=== PATIENT | female | born 1985 | race American Indian/Alaskan Native ===

== ENCOUNTER 2018-05-12 10:56 | Emergency (ER) | payer BC ==
[~2018-05-12] VITALS: Ht 165.1 cm; Wt 63.5 kg
[~2018-05-12 10:56] MED LIST: BIRTH CONTROL PILLS PO; POLY17UD PO
[2018-05-12] MEDS ORDERED: ALBU90OI6 INH (11:04)
[2018-05-12] MEDS ORDERED: ATEN25 (11:04)
[2018-05-12] MEDS ORDERED: BUDE6HFA INH (11:04)
== END 2018-05-12 11:21 | disposition home or self-care (01) ==
LOC: ER 10:56
DX: I48.0 Paroxysmal atrial fibrillation (principal); Z88.0 Allergy status to penicillin; Z79.899 Other long term (current) drug therapy
CPT/HCPCS: 93005; 93010

== ENCOUNTER 2018-09-21 07:25 | Emergency (ER) | payer BC ==
[~2018-09-21] VITALS: Ht 167.6 cm; Wt 61.2 kg
[~2018-09-21 07:25] MED LIST changes: +ALBU90OI6 INH; +ATEN25; +BUDE6HFA INH
[2018-09-21] MEDS ORDERED: BIRTH CONTROL (07:31)
== END 2018-09-21 09:01 | disposition home or self-care (01) ==
LOC: ER 07:25
DX: R51 Headache (principal); Z88.0 Allergy status to penicillin
CPT/HCPCS: 36415; 70450; 96361; 96374; 96375; 99284-25; J1200; J1885; J7030

== ENCOUNTER 2019-04-23 19:05 | Emergency (ER) | payer BC ==
[~2019-04-23] VITALS: Ht 167.6 cm; Wt 68.0 kg
[~2019-04-23 19:05] MED LIST changes: +BIRTH CONTROL
[2019-04-23] MEDS ORDERED: SUMA25 PO (19:10)
== END 2019-04-23 21:57 | disposition home or self-care (01) ==
LOC: ER 19:05
DX: G43.909 Migraine, unspecified, not intractable, without status migrainosus (principal); I48.91 Unspecified atrial fibrillation; J45.909 Unspecified asthma, uncomplicated; Z88.0 Allergy status to penicillin
CPT/HCPCS: 36415; 96361; 96374; 96375; 99283-25; J0780; J1200; J1885; J7030

== ENCOUNTER 2019-11-25 13:10 | Emergency (ER) | payer BC ==
[~2019-11-25] VITALS: Ht 165.1 cm; Wt 63.5 kg
[~2019-11-25 13:10] MED LIST changes: +SUMA25 PO
[2019-11-25 13:49] LABS: BASOPHILS ABSOLUTE AUTO 0.04 K/mm3 (0.00-0.23); BASOPHILS PERCENT AUTO 1 % (0-2); EOSINOPHILS ABSOLUTE AUTO 0.11 K/mm3 (0.00-0.68); EOSINOPHILS PERCENT AUTO 2 % (0-6); Hematocrit 41.6 % (33.0-51.0); Hemoglobin 14.1 g/dL (11.5-16.0); IMMATURE GRAN ABSOLUTE AUTO 0.01 K/mm3 (0.00-0.10); IMMATURE GRAN PERCENT AUTO 0 % (0-1); LYMPHOCYTES ABSOLUTE AUTO 1.75 K/mm3 (0.84-5.20); LYMPHOCYTES PERCENT AUTO 32 % (21-46); MONOCYTES ABSOLUTE AUTO 0.58 K/mm3 (0.16-1.47); MONOCYTES PERCENT AUTO 11 % (4-13); Mean Corpuscular HGB 31.9 pg (26.0-34.0); Mean Corpuscular HGB Conc 33.9 g/dL (31.5-36.5); Mean Corpuscular Volume 94 fL (80-100); Mean Platelet Volume 8.7 fL (9.1-12.4); NEUTROPHILS ABSOLUTE AUTO 2.96 K/mm3 (1.96-9.15); NEUTROPHILS PERCENT AUTO 54 % (41-73); Platelet Count 281 K/mm3 (150-400); RDW Coefficient Variation 11.6 % (11.7-14.2); RDW Standard Deviation 39.8 fL (35.1-46.3); Red Blood Cell Count 4.42 M/mm3 (3.80-5.20); White Blood Cell Count 5.45 K/mm3 (4.00-11.30)
[2019-11-25 14:05] LABS: Alanine Aminotransfer (ALT/SGP 17 U/L (12-78); Albumin, Blood 4.3 g/dL (3.4-5.0); Albumin/Globulin Ratio 1.1 (0.8-1.8); Alk Phos 51 U/L (50-136); Anion Gap 7 mmol/L (6-16); Aspartate Aminotrans (AST/SGOT 12 U/L (12-37); Bilirubin, Total 0.5 mg/dL (0.1-1.0); Blood Urea Nitrogen 9 mg/dL (8-24); CO2, Blood 24 mmol/L (21-32); Chloride, Blood 108 mmol/L (98-108); Creatinine, Blood 0.69 mg/dL (0.40-1.00); Glomerular Filtration Rate >60 (60-); Glucose, Blood 88 mg/dL (70-99); Potassium, Blood 3.9 mmol/L (3.5-5.5); Sodium, Blood 139 mmol/L (136-145); Total Protein, Blood 8.3 g/dL (6.4-8.2); Troponin I <0.015 ng/mL (0.000-0.040)
[2019-11-25] MEDS ORDERED: OMEP20ER PO (15:47)
[2019-11-25] MEDS ORDERED: IMITREX25 MG PO (15:48)
[2019-11-25] MEDS ORDERED: ASPI325 PO (15:48)
== END 2019-11-25 16:21 | disposition home or self-care (01) ==
LOC: ER 13:10
PROVIDERS: Physician Assistant
DX: K21.9 Gastro-esophageal reflux disease without esophagitis (principal); F43.9 Reaction to severe stress, unspecified; I48.91 Unspecified atrial fibrillation; J45.909 Unspecified asthma, uncomplicated
CPT/HCPCS: 36415; 71046; 80053; 84484; 85025; 85379; 93005; 93010; 99284-25

== ENCOUNTER 2020-10-18 06:49 | Day surgery (SDC) | payer BC ==
[~2020-10-18] VITALS: Ht 165.1 cm; Wt 63.4 kg
[~2020-10-18 06:49] MED LIST changes: +ASPI325 PO; +IMITREX25 MG PO; +OMEP20ER PO
[2020-10-18] MEDS ORDERED: ACET325 PO (07:14)
[2020-10-18] MEDS ORDERED: ATEN25 PO (07:14)
== END 2020-10-18 08:45 | disposition home or self-care (01) ==
LOC: ORSCSDS 06:49
PROVIDERS: Surgery
PROC: 0DB68ZX Excision of Stomach, Via Natural or Artificial Opening Endoscopic, Diagnostic (ICD-10-PCS; principal; 2020-10-18 08:00)
DX: R10.13 Epigastric pain (principal); K21.9 Gastro-esophageal reflux disease without esophagitis; F41.9 Anxiety disorder, unspecified; J45.909 Unspecified asthma, uncomplicated; Z79.899 Other long term (current) drug therapy
CPT/HCPCS: 88305; 88342; J2704; J7120

== ENCOUNTER → 2024-05-21 | Outpatient (CLI) | payer OTHER ==
[~2024-05-21] MED LIST changes: +ACET325 PO; +ATEN25 PO; +CIPR500 PO; +METR500 PO; +[UNRECOGNIZED DRUG - OTHER] PO
[2024-05-23 07:16] LABS: APTIMA MEDIA TYPE Urine; C. TRACHOMATIS BY TMA Negative (Negative); N. GONORRHOEAE BY TMA Negative (Negative); SPECIMEN SOURCE Urine
== END ==
LOC: LAB 17:12 → LAB SHORT 17:12
PROVIDERS: Obstetrics & Gynecology
DX: Z34.01 Encounter for supervision of normal first pregnancy, first trimester (principal)
CPT/HCPCS: 87491; 87591

== ENCOUNTER 2024-11-24 07:05 | Inpatient (IN) | payer OTHER ==
[2024-11-24] VITALS (26 sets, daily range): BP systolic 107–149; BP diastolic 64–88
[~2024-11-24] VITALS: Ht 167.6 cm; Wt 83.5 kg
[2024-11-24] MEDS ORDERED: Carboprost Tromethamine 250 MCG/ML 1ML Amp IM PRN (07:55)
[2024-11-24] MEDS ORDERED: OXYTOCIN/RINGER'S LACTATE 500 ML IV PRN (07:55)
[2024-11-24] MEDS ORDERED: FentaNYL 2mcg/ml-Bup 0.1% Epd 250 ML EPI PRN (07:55)
[2024-11-24] MEDS ORDERED: Methylergonovine Maleate 0.2MG / ML 1ML Amp IM PRN (07:55)
[2024-11-24] MEDS ORDERED: FentaNYL Citrate 50 MCG/ML 2 ML Injection IV PRN (07:55)
[2024-11-24] MEDS ORDERED: Tranexamic Acid 100 ML IV SCH (07:55)
[2024-11-24] MEDS ORDERED: ePHEDrine Sulfate 50 MG/ML 1ML Injection XX PRN (07:55)
[2024-11-24] MEDS ORDERED: Oxytocin 10 Unit / ML Vial IM PRN (07:55)
[2024-11-24] MEDS ORDERED: OXYTOCIN/RINGER'S LACTATE 500 ML IV SCH (07:55)
[2024-11-24] MEDS ORDERED: Ondansetron HCl 2 MG / ML 2ML Vial IV PRN (08:00)
[2024-11-24 08:11] LABS: BASOPHILS ABSOLUTE AUTO 0.02 K/mm3 (0.00-0.23); BASOPHILS PERCENT AUTO 0 % (0-2); EOSINOPHILS ABSOLUTE AUTO 0.13 K/mm3 (0.00-0.68); EOSINOPHILS PERCENT AUTO 2 % (0-6); Hematocrit 37.4 % (33.0-51.0); Hemoglobin 12.9 g/dL (11.5-16.0); IMMATURE GRAN ABSOLUTE AUTO 0.04 K/mm3 (0.00-0.10); IMMATURE GRAN PERCENT AUTO 0 % (0-1); LYMPHOCYTES ABSOLUTE AUTO 2.01 K/mm3 (0.84-5.20); LYMPHOCYTES PERCENT AUTO 23 % (21-46); MONOCYTES ABSOLUTE AUTO 0.72 K/mm3 (0.16-1.47); MONOCYTES PERCENT AUTO 8 % (4-13); Mean Corpuscular HGB Conc 34.5 g/dL (31.5-36.5); Mean Corpuscular Volume 94 fL (80-100); NEUTROPHILS ABSOLUTE AUTO 5.97 K/mm3 (1.96-9.15); NEUTROPHILS PERCENT AUTO 67 % (41-73); NRBC ABSOLUTE 0.00 K/mm3 (0.00-0.02); NRBC Auto 0.0 /100 WBC (0.0-0.2); Platelet Count 242 K/mm3 (150-400); RDW Coefficient Variation 13.8 % (11.7-14.2); RDW Standard Deviation 47.1 fL (35.1-46.3)
[2024-11-24] MEDS ORDERED: PRENATAL TABLE1 EAC2 PO (08:29)
[2024-11-25] VITALS (13 sets, daily range): BP systolic 100–129; BP diastolic 57–71
[2024-11-25] MEDS ORDERED: Witch Hazel/Glycerin PADS TOP PRN (02:50)
[2024-11-25] MEDS ORDERED: Methylergonovine Maleate 0.2MG / ML 1ML Amp IM PRN (02:50)
[2024-11-25] MEDS ORDERED: OXYTOCIN/RINGER'S LACTATE 500 ML IV SCH (02:50)
[2024-11-25] MEDS ORDERED: Benzocaine Topical Anesthetic Spray 60GM TOP PRN (02:50)
[2024-11-25] MEDS ORDERED: Ketorolac Tromethamine 30mg Vial IV PRN (03:31)
[2024-11-25] MEDS ORDERED: Ketorolac Tromethamine 30mg Vial IV SCH (06:00)
[2024-11-25 06:28] LABS: BASOPHILS ABSOLUTE AUTO 0.04 K/mm3 (0.00-0.23); BASOPHILS PERCENT AUTO 0 % (0-2); EOSINOPHILS ABSOLUTE AUTO 0.05 K/mm3 (0.00-0.68); EOSINOPHILS PERCENT AUTO 0 % (0-6); Hematocrit 32.3 % (33.0-51.0); Hemoglobin 11.1 g/dL (11.5-16.0); IMMATURE GRAN ABSOLUTE AUTO 0.07 K/mm3 (0.00-0.10); IMMATURE GRAN PERCENT AUTO 1 % (0-1); LYMPHOCYTES ABSOLUTE AUTO 1.77 K/mm3 (0.84-5.20); LYMPHOCYTES PERCENT AUTO 12 % (21-46); MONOCYTES ABSOLUTE AUTO 1.25 K/mm3 (0.16-1.47); MONOCYTES PERCENT AUTO 9 % (4-13); Mean Corpuscular HGB Conc 34.4 g/dL (31.5-36.5); Mean Corpuscular Volume 94 fL (80-100); NEUTROPHILS ABSOLUTE AUTO 11.39 K/mm3 (1.96-9.15); NEUTROPHILS PERCENT AUTO 78 % (41-73); NRBC ABSOLUTE 0.00 K/mm3 (0.00-0.02); NRBC Auto 0.0 /100 WBC (0.0-0.2); Platelet Count 230 K/mm3 (150-400); RDW Coefficient Variation 13.7 % (11.7-14.2); RDW Standard Deviation 47.2 fL (35.1-46.3)
[2024-11-25] MEDS ORDERED: Prenatal Vit/FE Fumarate/FA 1 Tab PO SCH (09:00)
[2024-11-26 02:57] VITALS: BP 110/55
[2024-11-26 07:24] VITALS: BP 97/59
[2024-11-26 12:01] VITALS: BP 110/68
== END 2024-11-26 13:28 | disposition home or self-care (01) | DRG 807 ==
LOC: OBS 07:05 → BC 07:05 → OBS 07:17 → BC 20:29
PROVIDERS: ADMIT Obstetrics & Gynecology
PROC: 10E0XZZ Delivery of Products of Conception, External Approach (ICD-10-PCS; principal; 2024-11-25)
PROC: 0HQ9XZZ Repair Perineum Skin, External Approach (ICD-10-PCS; 2024-11-25)
PROC: 3E0R3BZ Introduction of Anesthetic Agent into Spinal Canal, Percutaneous Approach (ICD-10-PCS; 2024-11-25)
PROC: 00HU33Z Insertion of Infusion Device into Spinal Canal, Percutaneous Approach (ICD-10-PCS; 2024-11-25)
DX: O69.81X0 Labor and delivery complicated by cord around neck, without compression, not applicable or unspecified (principal); O70.0 First degree perineal laceration during delivery; Z37.0 Single live birth; Z3A.39 39 weeks gestation of pregnancy
CPT/HCPCS: 36415; 51702; 85025; 86850; 86900; 86901; A9270; J1885; J2405; J2590; J7120